=== PATIENT | male | born 1965 | race Caucasian/White ===

== ENCOUNTER 2018-07-27 21:44 | Inpatient (IN) | payer OTHER ==
[2018-07-27] MEDS ORDERED: morphine 2 MG INJ IV (22:30)
[2018-07-27] MEDS ORDERED: NACL 0.9% 3 ML SYG IV (22:30)
[2018-07-27] MEDS ORDERED: NITROGLYCERIN (SL) 0.4 MG TAB SL (22:30)
[2018-07-27] MEDS ORDERED: BISACODYL (EC) 5 MG TAB PO (22:30)
[2018-07-27] MEDS ORDERED: DOCUSATE SODIUM 100 MG CAP PO (22:30)
[2018-07-27] MEDS ORDERED: ONDANSETRON 4 MG INJ IV (22:30)
[2018-07-27] MEDS ORDERED: morphine 2 MG INJ IM (23:27)
[2018-07-27 23:41] LABS: ADD MAN DIFF? NO
[2018-07-27 23:44] LABS: BASOPHIL # 0.1 10^3/ul (0.0-0.1); BASOPHILS % 1.9 % (0.0-2.0); EOSINOPHILS # 0.4 10^3/ul (0.0-0.5); HEMATOCRIT 41.6 % (42.0-52.0); HEMOGLOBIN 13.5 g/dl (14.0-18.0); LYMPHOCYTES # 1.9 10^3/ul (0.8-2.9); LYMPHOCYTES % 29.8 % (15.0-51.0); MEAN CORPUSCULAR HEMOGLOBIN 29.7 pg (29.0-33.0); MEAN CORPUSCULAR HGB CONC 32.5 g/dl (32.0-37.0); MEAN CORPUSCULAR VOLUME 91.6 fl (82.0-101.0); MEAN PLATELET VOLUME 10.6 fl (7.4-10.4); MONOCYTE # 0.6 10^3/ul (0.3-0.9); MONOCYTES % 9.2 % (0.0-11.0); NEUTROPHIL # 3.3 10^3/ul (1.6-7.5); NEUTROPHILS % 51.8 % (39.0-77.0); PLATELET COUNT 253 10^3/UL (140-415); RED BLOOD COUNT 4.54 10^6/ul (4.70-6.10); RED CELL DISTRIBUTION WIDTH 14.6 % (11.5-14.5)
[2018-07-27 23:44] LABS: WHITE BLOOD COUNT 6.3 10^3/ul (4.8-10.8)
[2018-07-27] MEDS: morphine 2 MG INJ IM (23:44)
[2018-07-28 00:01] LABS: CREATINE KINASE 53 IU/L (23-200)
[2018-07-28 00:02] LABS: ETHANOL < 10.0 mg/dl (0-0)
[2018-07-28 00:03] LABS: ALANINE AMINOTRANSFERASE 21 IU/L (13-69); ALBUMIN 3.7 g/dl (3.3-4.9); ALKALINE PHOSPHATASE 103 IU/L (42-121); ANION GAP 8 (5-13); ASPARTATE AMINO TRANSFERASE 33 IU/L (15-46); BILIRUBIN,INDIRECT 0.2 mg/dl (0-1.1); BILIRUBIN,TOTAL 0.2 mg/dl (0.2-1.3); BLOOD UREA NITROGEN 12 mg/dl (7-20); CALCIUM 9.4 mg/dl (8.4-10.2); CARBON DIOXIDE 27 mmol/L (21-31); CHLORIDE 103 mmol/L (97-110); CREATININE 0.96 mg/dl (0.61-1.24); Estimated GFR > 60 mL/min (>60); GLUCOSE 88 mg/dl (70-220); POTASSIUM 4.1 mmol/L (3.5-5.1); SODIUM 138 mmol/L (135-144); TOTAL PROTEIN 7.4 g/dl (6.1-8.1)
[2018-07-28 00:14] LABS: CK INDEX 1.9; CK-MB 1.02 ng/ml (0.0-2.4); TROPONIN-I < 0.012 ng/ml (0.000-0.120)
[2018-07-28] MEDS ORDERED: PENDING SANTYL ORDER FOR WOUND CARE XX (00:30)
[2018-07-28] MEDS ORDERED: morphine 2 MG INJ IM (02:30)
[2018-07-28] MEDS: morphine 2 MG INJ IM ×5 (04:07→22:08)
[2018-07-28] MEDS: CREON (24K-76K-120K) 1 CAP PO ×3 (08:00→18:56)
[2018-07-28] MEDS: ACETAMINOPHEN 325 MG TAB PO (09:29)
[2018-07-28 10:07] LABS: AMPHETAMINE/METHAMPHETAMINE Negative (NEGATIVE); BARBITURATES Negative (NEGATIVE); BENZODIAZEPINES Negative (NEGATIVE); CANNABINOIDS Negative (NEGATIVE); COCAINE Negative (NEGATIVE)
[2018-07-28 10:09] LABS: OPIATES Positive (NEGATIVE)
[2018-07-28 15:15] LABS: TROPONIN-I < 0.012 ng/ml (0.000-0.120)
[2018-07-28 18:15] LABS: D-DIMER 626.88 ng/ml (<460)
[2018-07-28 18:32] LABS: TROPONIN-I < 0.012 ng/ml (0.000-0.120)
[2018-07-28] MEDS: NIFEdipine (XL) 60 MG TAB PO (19:54)
[2018-07-28] MEDS ORDERED: SILVER NITRATE SWAB TOP ×2 (21:00→21:30)
[2018-07-28] MEDS ORDERED: LIDOCAINE 1%/EPI (MDV) 50 ML INJ INJ (21:00)
[2018-07-28] MEDS ORDERED: LIDOCAINE 1%/EPI (1:100,000) (MDV) 20 ML INJ (21:30)
[2018-07-28] MEDS ORDERED: SOD CHLORIDE 0.9% 100 ML (23:21)
[2018-07-28] MEDS ORDERED: IOHEXOL 100 ML (23:21)
[2018-07-29] MEDS: morphine 2 MG INJ IM ×3 (02:22→10:41)
[2018-07-29] MEDS: ACETAMINOPHEN 500 MG TAB PO (07:27)
[2018-07-29] MEDS: CREON (24K-76K-120K) 1 CAP PO ×3 (07:53→11:19)
[2018-07-29] MEDS: NIFEdipine (XL) 60 MG TAB PO (07:54)
[2018-07-29] MEDS ORDERED: VANCOMYCIN IV PER PHARMACY XX (11:30)
[2018-07-29] MEDS ORDERED: VANCOMYCIN HCL 1.5 GM in SOD CHLORIDE 0.9% 250 ML IVPB (14:00)
[2018-07-29] MEDS ORDERED: PIPER-TAZO 3.375 GM IV (PMX) 100 ML IVPB (14:00)
[2018-07-30] MEDS ORDERED: VANCOMYCIN 1 GM 250 ML IVPB (02:00)
== END 2018-07-29 13:50 | disposition home or self-care (01) | DRG 313 ==
LOC: 6WM 21:44
PROC: 0Y9100Z Drainage of Left Buttock with Drainage Device, Open Approach (ICD-10-PCS; principal; 2018-07-29)
DX: R07.89 Other chest pain (principal); L02.31 Cutaneous abscess of buttock; L02.414 Cutaneous abscess of left upper limb; K86.1 Other chronic pancreatitis; L02.413 Cutaneous abscess of right upper limb; J44.9 Chronic obstructive pulmonary disease, unspecified; Z86.718 Personal history of other venous thrombosis and embolism; E78.5 Hyperlipidemia, unspecified; F31.9 Bipolar disorder, unspecified; Z87.891 Personal history of nicotine dependence; F11.90 Opioid use, unspecified, uncomplicated; Z85.9 Personal history of malignant neoplasm, unspecified; Z86.19 Personal history of other infectious and parasitic diseases; Z86.711 Personal history of pulmonary embolism; D64.9 Anemia, unspecified
CPT/HCPCS: 71045; 71275; 76536; 80053; 80307; 82550; 82553; 84484; 85025; 85378; 87040-91; 87081; 93306; 93970; 99217; G0378

== ENCOUNTER 2018-08-04 22:25 | Emergency (ER) | payer OTHER ==
[2018-08-05] MEDS: CEFTRIAXONE 1 GM INJ IM (03:03)
[2018-08-05] MEDS: LIDOCAINE 1% (MPF) 5 ML VIAL INFIL (03:03)
[2018-08-05] MEDS: IBUPROFEN 600 MG TAB PO (03:03)
== END 2018-08-05 03:21 | disposition home or self-care (01) ==
LOC: FTE 22:25
DX: L02.31 Cutaneous abscess of buttock (principal); J45.909 Unspecified asthma, uncomplicated; I10 Essential (primary) hypertension; F17.210 Nicotine dependence, cigarettes, uncomplicated; T81.30XA Disruption of wound, unspecified, initial encounter; Y82.8 Other medical devices associated with adverse incidents
CPT/HCPCS: 96372; 99284-25

== ENCOUNTER 2018-08-11 21:48 | Emergency (ER) | payer OTHER | END 2018-08-12 01:53 | disposition home or self-care (01) | LOC: E/R 08-12 01:53 | DX: R60.0 Localized edema (principal); J44.9 Chronic obstructive pulmonary disease, unspecified; I10 Essential (primary) hypertension | CPT/HCPCS: 71045; 93970; 99284-25 ==